=== PATIENT | male | born 1945 | race Asian ===

== ENCOUNTER 2016-11-08 08:29 | Emergency (ER) | payer MEDICARE, BC ==
[~2016-11-08] VITALS: Wt 80.0 kg
[~2016-11-08 08:29] MED LIST: ACET500C5 PO; BAC30OI TOP; BEN25 PO
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
[2016-11-08] MEDS ORDERED: ACETAMINOPHEN 325 MG TAB PO ONE (09:00)
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
[2016-11-08] MEDS ORDERED: ACET325T33 PO (09:45)
== END 2016-11-08 09:54 | disposition home or self-care (01) ==
LOC: FTE 08:29
DX: S20.211A Contusion of right front wall of thorax, initial encounter (principal); I10 Essential (primary) hypertension; E11.9 Type 2 diabetes mellitus without complications; W18.39XA Other fall on same level, initial encounter; Y92.9 Unspecified place or not applicable; Z79.84 Long term (current) use of oral hypoglycemic drugs
CPT/HCPCS: 71020; 93005